=== PATIENT | male | born 1950 | race Caucasian/White ===

== ENCOUNTER 2017-01-10 11:38 | Emergency (ER) | payer BC, OTHER ==
[2017-01-10 11:48] VITALS: BMI 29.7
--- NOTE | 2017-01-10 12:32 | PDOC ---
History of Present Illness - General History Source: Patient, Old Records Exam Limitations: No Limitations - History of Present Illness Initial Comments: 01/10/17 12:33 The patient is a 66 year old male, with a significant past medical history of renal colic, who presents to the emergency department with right sided abdominal pain, nausea, and vomiting since this morning. He reports having kidney stones in the past. He reports his pain often radiates into his testicular area. He denies any recent fevers, chills, headache or dizziness. He denies any recent diarrhea or constipation. He denies any recent chest pain or shortness of breath. He denies any recent frequency, urgency or hematuria. Allergies: NKA Past surgical history: None reported. Social History: Nonsmoker. Denies EtOH use and recreational drug use. Primary Care Physician: <Sundeep Garcia - Last Filed: 01/10/17 12:33> - General History Source: Patient Exam Limitations: No Limitations <Tyson Smith - Last Filed: 01/10/17 14:51> - General Chief Complaint: Pain Stated Complaint: STOMACH PAIN Time Seen by Provider: 01/10/17 12:19 Past History <Sundeep Garcia - Last Filed: 01/10/17 12:33> - Past Medical History HTN: Yes (NO MEDS) Kidney Stones: Yes - Psycho/Social/Smoking Cessation Hx Anxiety: No Suicidal Ideation: No Smoking Status: No Smoking History: Never smoked Number of Cigarettes Smoked Daily: 0 Hx Alcohol Use: No Drug/Substance Use Hx: No Substance Use Type: None <Tyson Smith - Last Filed: 01/10/17 14:51> - Past Medical History Allergies/Adverse Reactions: Allergies Allergy/AdvReac Type Severity Reaction Status Date / Time No Known Allergies Allergy Verified 01/10/17 11:44 Home Medications: Ambulatory Orders No Home Medications 0 dose .ROUTE UTDICT 03/31/13 Naproxen [Naprosyn -] 500 mg PO BID PRN #20 tablet 01/10/17 Ondansetron HCl [Zofran] 4 mg PO Q8H PRN #12 tablet 01/10/17 Oxycodone HCl/Acetaminophen [Percocet 5-325 mg Tablet] 1 tab PO Q6H PRN #10 tablet MDD 4 01/10/17 Tamsulosin HCl [Flomax] 0.4 mg PO DAILY #14 cap.er.24h 01/10/17 Review of Systems - Review of Systems Able to Perform ROS?: Yes Comments:: 01/10/17 12:33 GENERAL/CONSTITUTIONAL: No fever or chills. No weakness. HEAD, EYES, EARS, NOSE AND THROAT: No change in vision. No ear pain or discharge. No sore throat. CARDIOVASCULAR: No chest pain or shortness of breath. RESPIRATORY: No cough, wheezing, or hemoptysis. GASTROINTESTINAL: + abdominal pain, nausea, vomiting. No diarrhea or constipation. GENITOURINARY: No: frequency, or change in urination. MUSCULOSKELETAL: No joint or muscle swelling or pain. No neck or back pain. SKIN: No rash NEUROLOGIC: No headache, vertigo, loss of consciousness, or change in strength/ sensation. ENDOCRINE: No increased thirst. No abnormal weight change. HEMATOLOGIC/LYMPHATIC: No anemia, easy bleeding, or history of blood clots. ALLERGIC/IMMUNOLOGIC: No hives or skin allergy <Sundeep Garcia - Last Filed: 01/10/17 12:33> *Physical Exam - Vital Signs Last Vital Signs Temp Pulse Resp BP Pulse Ox 97.7 F 54 L 20 154/115 97 01/10/17 11:42 01/10/17 11:42 01/10/17 11:42 01/10/17 11:42 01/10/17 11:42 - Physical Exam Comments: 01/10/17 12:33 GENERAL: Awake, alert, and fully oriented, uncomfortable appearing. HEAD: No signs of trauma EYES: PERRLA, EOMI, sclera anicteric, conjunctiva clear ENT: Auricles normal inspection, hearing grossly normal, nares patent, oropharynx clear without exudates. Moist mucosa NECK: Normal ROM, supple, no lymphadenopathy, JVD, or masses LUNGS: Breath sounds equal, clear to auscultation bilaterally. No wheezes, and no crackles HEART: Regular rate and rhythm, normal S1 and S2, no murmurs, rubs or gallops ABDOMEN: RIGHT CVA tenderness, and right RLQ tenderness. Soft, normoactive bowel sounds. No guarding, no rebound. No masses EXTREMITIES: Normal range of motion, no edema. No clubbing or cyanosis. No cords, erythema, or tenderness NEUROLOGICAL: Cranial nerves II through XII grossly intact. Normal speech, normal gait SKIN: Warm, Dry, normal turgor, no rashes or lesions noted. <Sundeep Garcia - Last Filed: 01/10/17 12:33> - Vital Signs Last Vital Signs Temp Pulse Resp BP Pulse Ox 97.7 F 54 L 20 154/115 97 01/10/17 11:42 01/10/17 11:42 01/10/17 11:42 01/10/17 11:42 01/10/17 11:42 <Tyson Smith - Last Filed: 01/10/17 14:51> ED Treatment Course - LABORATORY CBC & Chemistry Diagram: 01/10/17 13:02 01/10/17 13:02 <Tyson Smith - Last Filed: 01/10/17 14:51> Medical Decision Making - Medical Decision Making 01/10/17 12:31 A portion of this note was documented by scribe services under my direction. I have reviewed the details of the note, within reason, and agree with the documentation with the following case summary and management plan written by me. Patient treated in the ED. Nursing notes are reviewed and incorporated into the medical decision-making. Vital signs reviewed. Peripheral IV access obtained by the nurse, laboratory studies are drawn and sent, reviewed and interpreted by myself. Vital Signs Temp Pulse Resp BP Pulse Ox 97.7 F 54 L 20 154/115 97 01/10/17 11:42 01/10/17 11:42 01/10/17 11:42 01/10/17 11:42 01/10/17 11:42 66-year-old male with past medical history renal colic presents with right flank pain rating to right lower quadrant since this morning. Patient reports that the pain is constant and is causing him nausea and vomiting. Denies dysuria or hematuria or fevers. Differential includes renal colic, appendicitis. We'll obtain labs, CT scan, urinalysis. Give IV fluids, control pain and nausea and reassess. 01/10/17 14:41 CAT scan demonstrates formula and a right 4 mm UVJ calculus with mild hydronephrosis. CBC, BMP 01/10/17 13:02 01/10/17 13:02 CMP Sodium 142 mmol/L (136-145) 01/10/17 13:02 Potassium 3.8 mmol/L (3.5-5.1) 01/10/17 13:02 Chloride 106 mmol/L (98-107) 01/10/17 13:02 Carbon Dioxide 26 mmol/L (21-32) 01/10/17 13:02 Anion Gap 10 (8-16) 01/10/17 13:02 BUN 16 mg/dL (7-18) 01/10/17 13:02 Creatinine 1.0 mg/dL (0.7-1.3) 01/10/17 13:02 Creat Clearance w eGFR > 60 (>60) 01/10/17 13:02 Random Glucose 107 mg/dL (74-106) H 01/10/17 13:02 Calcium 9.1 mg/dL (8.5-10.1) 01/10/17 13:02 Total Bilirubin 0.7 mg/dL (0.2-1.0) 01/10/17 13:02 AST 22 U/L (15-37) 01/10/17 13:02 ALT 22 U/L (12-78) 01/10/17 13:02 Alkaline Phosphatase 79 U/L (45-117) 01/10/17 13:02 Total Protein 7.5 g/dl (6.4-8.2) 01/10/17 13:02 Albumin 4.3 g/dl (3.4-5.0) 01/10/17 13:02 Lipase 62 U/L (73-393) L 01/10/17 13:02 Urine Test Results Urine Color Straw 01/10/17 13:47 Urine Appearance Clear 01/10/17 13:47 Urine pH 6.0 (5.0-8.0) 01/10/17 13:47 Urine Protein Negative (NEGATIVE) 01/10/17 13:47 Urine Glucose (UA) Negative (NEGATIVE) 01/10/17 13:47 Urine Ketones Trace (NEGATIVE) H 01/10/17 13:47 Urine Blood 3+ (NEGATIVE) H 01/10/17 13:47 Urine Nitrite Negative (NEGATIVE) 01/10/17 13:47 Urine Bilirubin Negative (NEGATIVE) 01/10/17 13:47 Ur Leukocyte Esterase Negative (NEGATIVE) 01/10/17 13:47 Urine RBC 76 /hpf (0-3) 01/10/17 13:47 Urine WBC <1 /hpf (3-5) 01/10/17 13:47 Urine Mucus Rare 01/10/17 13:47 The patient is noted to have a kidney stone. The pain is significant improved. We'll discharge home with family. Flomax, pain control, nausea control follow- up with urologist. Return precautions given including high fevers, persistent nausea and vomiting, uncontrollable pain. I discussed the physical exam findings, ancillary test results and final diagnoses with the patient. I answered all of the patient's questions. The patient was satisfied with the care received and felt comfortable with the discharge plan and treatment plan. The patient will call their primary care physician within 24 hours to arrange follow-up and will return to the Emergency Department with any new, persistant or worsening symptoms. <Tyson Smith - Last Filed: 01/10/17 14:51> *DC/Admit/Observation/Transfer - Attestations Scribe Attestion: 01/10/17 12:33 Documentation prepared by Sundeep Garcia, acting as medical leader for Tyson Smith MD. <Sundeep Garcia - Last Filed: 01/10/17 12:33> - Discharge Dispostion Admit: No <Tyson Smith - Last Filed: 01/10/17 14:51> Diagnosis at time of Disposition: Kidney stone - Discharge Dispostion Disposition: HOME Condition at time of disposition: Improved - Prescriptions Prescriptions: Tamsulosin HCl [Flomax] 0.4 mg PO DAILY #14 cap.er.24h Naproxen [Naprosyn -] 500 mg PO BID PRN #20 tablet PRN Reason: Pain Level 1-5 Oxycodone HCl/Acetaminophen [Percocet 5-325 mg Tablet] 1 tab PO Q6H PRN #10 tablet MDD 4 PRN Reason: Severe Pain Ondansetron HCl [Zofran] 4 mg PO Q8H PRN #12 tablet PRN Reason: Nausea - Referrals Referrals: Lorenzo Jamil MD [Primary Care Provider] - Larry Berry MD., MD [Staff Physician] - - Patient Instructions Printed Discharge Instructions: DI for Kidney Stones Additional Instructions: Please drink plenty of fluids and rest. Take the medications as prescribed. Take 500 mg naproxen every 12 hours as needed for pain. For severe pain control, take a tablet of percocet every 6 hours as needed. Please take the flomax as prescribed. It may take several days before your symptoms resolve. Please make an appointment with a urologist.
[2017-01-10] MEDS ORDERED: morphine CARPU-JECT 4 MG/1 ML DISP.SYRIN IVPUSH ONE ×2 (12:33→13:58)
[2017-01-10] MEDS ORDERED: SODIUM CHLORIDE 1,000 ML IV STA (12:33)
[2017-01-10] MEDS ORDERED: ONDANSETRON 4 MG/2 ML VIAL IVPB ONE (12:33)
[2017-01-10] MEDS ORDERED: morphine CARPU-JECT 4 MG/1 ML DISP.SYRIN ONE ×2 (12:44→14:01)
[2017-01-10] MEDS ORDERED: ONDANSETRON 4 MG/2 ML VIAL ONE (12:44)
[2017-01-10 13:11] LABS: BASOPHIL 0.4 % (0-2.0); EOSINOPHIL 0.3 % (0-4.5); MCH 28.3 pg (25.7-33.7); MCHC 33.9 g/dl (32.0-35.9); MEAN CELL VOLUME 83.6 fl (80-96); MEAN PLT VOLUME 8.9 fl (7.5-11.1); NEUTROPHILS 87.7 % (42.8-82.8); PLATELET COUNT 189 K/MM3 (134-434); RDW 13.3 % (11.9-15.9); WHITE BLOOD COUNT 12.9 K/mm3 (4.0-10.0)
[2017-01-10 13:53] LABS: ALBUMIN 4.3 g/dl (3.4-5.0); ANION GAP 10 (8-16); BILIRUBIN,TOTAL 0.7 mg/dL (0.2-1.0); CALCIUM 9.1 mg/dL (8.5-10.1); CO2 26 mmol/L (21-32); COCKROFT - GAULT 104.89; GLUCOSE,RANDOM 107 mg/dL (74-106); SGOT/AST 22 U/L (15-37); SGPT/ALT 22 U/L (12-78); TOT PROT 7.5 g/dl (6.4-8.2)
[2017-01-10 13:54] LABS: ALK PHOS 79 U/L (45-117)
[2017-01-10] MEDS ORDERED: KETOROLAC TROMETHAMINE 30 MG/1 ML VIAL IVPUSH ONE (13:58)
[2017-01-10] MEDS ORDERED: KETOROLAC TROMETHAMINE 15 MG/ML VIAL ONE (14:01)
[2017-01-10 14:07] LABS: URINE APPEARANCE CLEAR; URINE BILIRUBIN NEGATIVE (NEGATIVE); URINE COLOR STRAW; URINE GLUCOSE (UA) NEGATIVE (NEGATIVE); URINE KETONE TRACE (NEGATIVE); URINE LEUK ESTERASE NEGATIVE (NEGATIVE); URINE NITRITE NEGATIVE (NEGATIVE); URINE PROTEIN NEGATIVE (NEGATIVE); URINE UROBILINOGEN NEGATIVE E.U./dl (0.2-1.0)
[2017-01-10 14:14] LABS: URINE BLOOD 3+ (NEGATIVE)
[2017-01-10 14:31] LABS: URINE MUCUS RARE; URINE RBC 76 /hpf (0-3); URINE WBC <1 /hpf (3-5)
[2017-01-10] MEDS ORDERED: TAMSULOSIN HCL 0.4 MG CAP.ER.24H (FP) PO ONE (14:44)
[2017-01-10] MEDS ORDERED: TAMSULOSIN HCL 0.4 MG CAP.ER.24H (FP) ONE (15:15)
[2017-01-10 15:41] VITALS: BP 144/82; PULSE 62; TEMP 98.3
== END 2017-01-10 15:20 | disposition home or self-care (01) ==
LOC: JER 11:38
PROC: 3E033NZ Introduction of Analgesics, Hypnotics, Sedatives into Peripheral Vein, Percutaneous Approach (ICD-10-PCS; principal; 2017-01-10)
PROC: 3E0333Z Introduction of Anti-inflammatory into Peripheral Vein, Percutaneous Approach (ICD-10-PCS; 2017-01-10)
PROC: 3E033GC Introduction of Other Therapeutic Substance into Peripheral Vein, Percutaneous Approach (ICD-10-PCS; 2017-01-10)
PROC: 3E0337Z Introduction of Electrolytic and Water Balance Substance into Peripheral Vein, Percutaneous Approach (ICD-10-PCS; 2017-01-10)
DX: N20.0 Calculus of kidney (principal); Z87.442 Personal history of urinary calculi
CPT/HCPCS: 36415; 74176; 80053; 81003; 81015; 83690; 85025; 87086; 99284-25

== ENCOUNTER 2021-06-21 12:26 | Emergency (ER) | payer BC, OTHER ==
[2021-06-21 12:34] VITALS: BP 148/92; PULSE 95; TEMP 98.1; BMI 28.0
[2021-06-21] MEDS ORDERED: METHOCARBAMOL 500 MG TABLET PO ONE (14:04)
[2021-06-21] MEDS ORDERED: KETOROLAC TROMETHAMINE 30 MG/1 ML VIAL IM ONE (14:04)
[2021-06-21] MEDS ORDERED: METHOCARBAMOL 500 MG TABLET ONE (14:06)
[2021-06-21] MEDS ORDERED: LIDOCAINE 5% TOPICAL PATCH ONE (14:06)
[2021-06-21] MEDS ORDERED: KETOROLAC TROMETHAMINE 30 MG/1 ML VIAL ONE (14:06)
[2021-06-21] MEDS ORDERED: LIDOCAINE 5% TOPICAL PATCH TP ONE (14:09)
[2021-06-21] MEDS ORDERED: LIDOCAINE PATCH REMOVAL MC SCH (22:00)
== END 2021-06-21 14:27 | disposition home or self-care (01) ==
LOC: JERFT 12:26
PROC: 3E0233Z Introduction of Anti-inflammatory into Muscle, Percutaneous Approach (ICD-10-PCS; principal; 2021-06-21)
DX: M62.838 Other muscle spasm (principal); M54.9 Dorsalgia, unspecified
CPT/HCPCS: 99283-25

== ENCOUNTER → 2021-07-15 | Day surgery (SDC) | payer BC ==
[2021-07-14 13:16] VITALS: BMI 25.5
[~2021-07-15] MED LIST: DEXAMETHASONE SOD PHOSPHATE 10 MG/1 ML VIAL ONE; LIDOCAINE HCL/PF 1% SDV 5ML VIAL ONE; LISINOPRIL 20 MG TABLET PO ONE
[2021-07-15 09:04] VITALS: BP 170/99; PULSE 81; TEMP 97.3
== END | disposition home or self-care (01) ==
LOC: JASU-SURG 05:05
PROVIDERS: ATTEND Pain Medicine Pain Medicine
DX: Z53.8 Procedure and treatment not carried out for other reasons (principal)
CPT/HCPCS: J1100